=== PATIENT | female | born 1975 | race Caucasian/White ===

== ENCOUNTER 2018-04-17 08:15 | Observation (INO) ==
[2018-04-17] MEDS ORDERED: Sodium Chlor 0.9% Inj 500 ML IV.SIG ONE (08:53)
--- NOTE | 2018-04-17 08:53 | ED ---
[facility] General Chief complaint: Chest Pain Stated complaint: Left Upper Body Pain Time Seen by Provider: 04/17/18 08:32 Source: patient and family Mode of arrival: ambulatory History of Present Illness [facility] narrative: Is a 42-year-old woman presents to the emergency department complaining of chest pain. She felt sick a little bit a couple days ago. She had one episode of vomiting. She was doing fine after that. She woke up this morning with dull left-sided chest discomfort. Along with this she describes some paresthesias in the left face and left arm. No numbness, no weakness, no other associated symptoms. Denies any shortness of breath. She has not had previous similar symptoms in the past. Only medical history is asthma. She does have recent history of a 8 hour car ride. She has been having some leg cramping recently. She otherwise had been feeling generally well and healthy. Related Data Home Medications Medication Instructions Recorded Confirmed No Known Home Medications 04/17/18 04/17/18 Allergies Allergy/AdvReac Type Severity Reaction Status Date / Time clarithromycin Allergy Severe Nausea/Vomi Verified 04/17/18 13:28 ting Review of Systems ROS Unobtainable All other systems reviewed negative except as stated in HPI [facility] Medical History Medical History Asthma (Acute) Social History Social History Substance History: No History of Abuse Second Hand Smoke Exposure: No Smoking Status: Never smoker How Often Do You Have a Drink Containing Alcohol: Monthly or less Recent Travel in [facility] within the Last 8 Weeks: No Recent Out of Country Travel within the Last 8 Weeks: No Immunization History Tetanus Immunization: <5 Years Hx Influenza Vaccine This Season: No Exam Narrative Exam Narrative: GENERAL: Obese 42-year-old woman, no acute distress. SKIN: Focused skin assessment warm/dry. HEAD: Atraumatic. Normocephalic. EYES: Pupils equal and round. No scleral icterus. No injection or drainage. ENT: No nasal bleeding or discharge. Mucous membranes pink and moist. NECK: Trachea midline. No JVD. CARDIOVASCULAR: Regular rate and rhythm. No murmur appreciated. RESPIRATORY: Mild tachypnea. No accessory muscle use. Clear to auscultation. Breath sounds equal bilaterally. GASTROINTESTINAL: Abdomen soft, non-tender, nondistended. Hepatic and splenic margins not palpable. MUSCULOSKELETAL: No obvious deformities. Legs are obese I do not see any reynaldo edema or asymmetry however she does have some calf tenderness on the left. NEUROLOGICAL: Awake and alert. Cranial nerves II through XII are intact. She has some paresthesias in the left face with sensations intact to light touch. Strength full and equal upper and lower extremity's. No pronator drift or lower extremity drift. Normal finger to nose. Still complaining of paresthesias in the left arm. Sensation otherwise intact. PSYCHIATRIC: Appropriate mood and affect; insight and judgment normal. Course Initial Documented Vital Signs Temperature 99.2 F 04/17/18 08:19 Pulse Rate 106 H 04/17/18 08:19 Respiratory Rate 18 04/17/18 08:19 Blood Pressure 135/81 04/17/18 08:19 Pulse Oximetry 97 04/17/18 08:19 Last Documented Vital Signs Temperature 99.2 F 04/17/18 08:19 Pulse Rate 106 H 04/17/18 09:52 Respiratory Rate 18 04/17/18 08:19 Blood Pressure 135/81 04/17/18 08:19 Pulse Oximetry 97 04/17/18 08:19 Medical Decision Making MDM Narrative Medical decision making narrative: Is a 42-year-old woman who presents to the emergency department complaining of left-sided chest pain and left sided paresthesias. She looks well. History is not really suggestive she has no objective neurologic deficits. She does have a history of long car ride, some calf tenderness, she was tachypneic on my exam, all worrisome for PE. Will just check CT pulmonary angiogram. EKG looks well. I do not think these are stroke symptoms. We will reassess. Lab Data Lab results reviewed: Yes I reviewed the patient's lab results. Result diagrams: 04/17/18 09:46 04/17/18 09:46 Lab Results 04/17/18 04/17/18 04/17/18 Range/Units 09:46 09:46 09:46 WBC 6.1 (4.0-11.0) th/mm3 RBC 4.68 (4.00-5.30) mil/mm3 Hgb 11.8 (11.6-15.3) gm/dL Hct 36.7 (35.0-46.0) % MCV 78.3 L (80.0-100.0) fL MCH 25.2 L (27.0-34.0) pg MCHC 32.2 (32.0-36.0) % RDW 16.0 (11.6-17.2) % Plt Count 206 (150-450) th/mm3 MPV 9.2 (7.0-11.0) fL Neut % (Auto) 74.6 H (16.0-70.0) % Lymph % (Auto) 18.8 (9.0-44.0) % Carbon % (Auto) 4.6 (0.0-8.0) % Eos % (Auto) 1.5 (0.0-4.0) % Baso % (Auto) 0.5 (0.0-2.0) % Neut # (Auto) 4.6 (1.8-7.7) th/mm3 Lymph # (Auto) 1.2 (1.0-4.8) th/mm3 Carbon # (Auto) 0.3 (0.0-0.9) th/mm3 Eos # (Auto) 0.1 (0.0-0.4) th/mm3 Baso # (Auto) 0.0 (0.0-0.2) th/mm3 WBC Differential . Differential Comment Auto diff final PT 10.1 (9.8-11.6) sec INR 1.0 Ratio APTT 25.7 (24.3-30.1) sec D-Dimer Quant (PE/DVT) 0.21 (0.00-0.50) mg/L FEU Sodium 142 (136-145) meq/L Potassium 4.2 (3.5-5.1) meq/L Chloride 110 H (98-107) meq/L Carbon Dioxide 26.1 (21.0-32.0) meq/L Anion Gap 6 (5-15) meq/L BUN 8 (7-18) mg/dL Creatinine 1.03 H (0.50-1.00) mg/dL Estimated GFR 58 L (>89) mL/min Random Glucose 90 (74-106) mg/dL Calcium 8.4 L (8.5-10.1) mg/dL Total Bilirubin 0.4 (0.2-1.0) mg/dL AST 14 L (15-37) U/L ALT 24 (10-53) U/L Alkaline Phosphatase 77 (45-117) U/L Troponin I Less than 0.02 L (0.02-0.05) ng/mL Total Protein 7.1 (6.4-8.2) g/dL Albumin 3.2 L (3.4-5.0) g/dL Imaging Data Radiologist's impression: Chest X-Ray 04/17/18 08:54 CONCLUSION: Negative examination. Chest CTA 04/17/18 09:08 CONCLUSION: 1. No evidence for pulmonary embolism. ECG Data EKG Prior to Arrival: Yes Attestation: I personally reviewed and interpreted this ECG as follows: Interpretation: Normal sinus rhythm at a rate of 87, normal axis, normal it ischemia. Discharge Plan Discharge Disposition Patient Disposition: 30 Still Patient Physicians Team ED Provider: Omid Hernandez Primary Care Provider: Rivas Escobar Attending Provider: Edison Braxton Status ED Status: Admitted Observation Patient
--- NOTE | 2018-04-17 09:31 | XR ---
EXAM DATE: 04/17/2018 9:23 AM EDT AGE/SEX: 42 years / Female INDICATIONS: . Left sided chest pain and tingling in face and upper extremities for one day. CLINICAL DATA: This is the patient's initial encounter. Patient reports that signs and symptoms have been present for 1 day and indicates a pain score of 7/10. MEDICAL/SURGICAL HISTORY: None. Cholecystectomy. COMPARISON: No prior exams available for comparison. FINDINGS: PA and lateral views of the chest demonstrate the lungs to be symmetrically aerated without evidence of mass, infiltrate or effusion. The cardiomediastinal contours are unremarkable. Osseous structures are intact. CONCLUSION: Negative examination. Electronically signed by: Alexander Ratliff MD 04/17/2018 9:29 AM EDT
[2018-04-17 10:12] LABS: Baso % (Auto) 0.5 % (0.0-2.0); Eos # (Auto) 0.1 th/mm3 (0.0-0.4); Eos % (Auto) 1.5 % (0.0-4.0); Hematocrit 36.7 % (35.0-46.0); Hemoglobin 11.8 gm/dL (11.6-15.3); Lymph # (Auto) 1.2 th/mm3 (1.0-4.8); Lymph % (Auto) 18.8 % (9.0-44.0); Mean Corpuscular HGB Conc 32.2 % (32.0-36.0); Mean Corpuscular Hemoglobin 25.2 pg (27.0-34.0); Mean Corpuscular Volume 78.3 fL (80.0-100.0); Mean Platelet Volume 9.2 fL (7.0-11.0); Mono # (Auto) 0.3 th/mm3 (0.0-0.9); Mono % (Auto) 4.6 % (0.0-8.0); Neut # (Auto) 4.6 th/mm3 (1.8-7.7); Neut % (Auto) 74.6 % (16.0-70.0); Platelet Count 206 th/mm3 (150-450); Red Blood Count 4.68 mil/mm3 (4.00-5.30); White Blood Count 6.1 th/mm3 (4.0-11.0)
[2018-04-17 10:18] LABS: Activated Partial Thrombo Time 25.7 sec (24.3-30.1); Prothrombin Time 10.1 sec (9.8-11.6)
[2018-04-17 10:21] LABS: D-Dimer 0.21 mg/L FEU (0.00-0.50)
[2018-04-17 10:38] LABS: Albumin 3.2 g/dL (3.4-5.0); Anion Gap 6 meq/L (5-15); Aspartate Aminotransferase 14 U/L (15-37); Blood Urea Nitrogen 8 mg/dL (7-18); Calcium 8.4 mg/dL (8.5-10.1); Carbon Dioxide 26.1 meq/L (21.0-32.0); Chloride 110 meq/L (98-107); Glomerular Filtration Rate 58 mL/min (>89); Glucose,Random 90 mg/dL (74-106); Potassium 4.2 meq/L (3.5-5.1); Sodium 142 meq/L (136-145)
[2018-04-17 10:39] LABS: Alanine Aminotransferase 24 U/L (10-53)
[2018-04-17 10:43] LABS: Alkaline Phosphatase 77 U/L (45-117); Total Protein 7.1 g/dL (6.4-8.2)
--- NOTE | 2018-04-17 12:01 | CT ---
EXAM DATE: 04/17/2018 10:28 AM EDT AGE/SEX: 42 years / Female INDICATIONS: Left sided chest pain. CLINICAL DATA: This is the patient's initial encounter. Patient reports that signs and symptoms have been present for 1 day and indicates a pain score of 4/10. MEDICAL/SURGICAL HISTORY: Asthma. None. RADIATION DOSE: 30.27 CTDI (mGy) ; Patient body habitus [place] [facility] [place]. . TECHNIQUE: Volumetric scanning was performed using a multi-row detector CT scanner during bolus infu silviano of 75 ml Omnipaque 350 (iohexol) nonionic water-soluble contrast as a single exam dose. The uche a was post processed with a variety of visualization algorithms including full volume maximum intensi ty projection and sliding thin slab reformation. Using automated exposure control and adjustment of the mA and/or kV according to patient size, radiation dose was kept as low as reasonably achievable t o obtain optimal diagnostic quality images. DICOM format image data is available electronically for review and comparison. FINDINGS: The lungs are clear. No pleural or pericardial effusions. No adenopathy. No evidence for pulmonary em bolism. The osseous structures are intact. CONCLUSION: 1. No evidence for pulmonary embolism. Electronically signed by: Alexander Ratliff MD 04/17/2018 10:32 AM EDT
[2018-04-17] MEDS ORDERED: Acetaminophen 325 MG Tablet PO PRN (15:19)
--- NOTE | 2018-04-17 15:28 | P.HP ---
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 Patient presents to the emergency department complaining of chest pain. She woke up this morning with moderate constant dull left-sided chest discomfort, which is still present. There was also one episode of shooting pain up her neck no other radiation of the pain. There was no associated N/V, SOB or diaphoresis. Along with this patient woke up with some paresthesias located on the left face and left arm. Patient denies weakness, shortness of breath, N/V/D/C. She does report a recent history of a 8 hour car ride. She has been having some leg cramping recently. She otherwise had been feeling generally well and healthy. 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 EtOH use once a week, "if that" Denies tobacco use now in the past Denies illicit drug use FMH: Sister has HTN and has had a CVA when she was 45 - Diagnosis (1) Chest pain Review of Systems All other systems reviewed negative except as stated in HPI [facility] - History History Provided By: Patient - Medical History Medical History: Medical History (Last Reviewed 04/17/18 @ 08:56 by Omid Hernandez MD) Asthma - Tobacco History Second Hand Smoke Exposure: No Tobacco Use In Past 30 Days: No Smoking Status: Never smoker - Alcohol History How Often Do You Have a Drink Containing Alcohol: Monthly or less - Substance Use History Substance History: No History of Abuse - Travel History Recent Travel in the [place] Within the Last 8 Weeks: No Recent Travel Out of the Country Within the Last 8 Weeks: No - Immunization History Tetanus Immunization: <5 Years Hx Influenza Vaccine This Season: No Medications and Allergies Allergies Allergy/AdvReac Type Severity Reaction Status Date / Time clarithromycin Allergy Severe Nausea/Vomi Verified 08/01/18 13:28 ting Active Medications: Active Medications Sodium Chloride (Ns Flush) 2 ml IV.FLUSH UNSCH PRN PRN Reason: FLUSH AFTER USING IV ACCESS Exam Vital signs: Vital Signs 04/17/18 08:19 04/17/18 09:52 Temperature 99.2 F Pulse Rate 106 H 106 H Respiratory Rate 18 Blood Pressure 135/81 Pulse Oximetry 97 Intake & Output 04/16/18 04/17/18 04/17/18 18:59 06:59 18:59 Weight 123.377 kg Narrative: GENERAL: This is a well-nourished, well-developed patient, in no apparent distress. CARDIOVASCULAR: Regular rate and rhythm RESPIRATORY: Clear to auscultation. Breath sounds equal bilaterally. GASTROINTESTINAL: Abdomen soft, non-tender, nondistended. Normal active bowel sounds MUSCULOSKELETAL: Extremities without clubbing, cyanosis, or edema. NEURO: Alert & Oriented x4 to person, place, time, situation. Moves all ext x4 Results - Labs CBC & Chem 7: 04/17/18 09:46 04/17/18 09:46 Labs: Laboratory Results - last 24 hr 04/17/18 04/17/18 04/17/18 09:46 09:46 09:46 WBC 6.1 RBC 4.68 Hgb 11.8 Hct 36.7 MCV 78.3 L MCH 25.2 L MCHC 32.2 RDW 16.0 Plt Count 206 MPV 9.2 Neut % (Auto) 74.6 H Lymph % (Auto) 18.8 [place] % (Auto) 4.6 Eos % (Auto) 1.5 Baso % (Auto) 0.5 Neut # (Auto) 4.6 Lymph # (Auto) 1.2 [place] # (Auto) 0.3 Eos # (Auto) 0.1 Baso # (Auto) 0.0 WBC Differential . Differential Comment Auto diff final PT 10.1 INR 1.0 APTT 25.7 D-Dimer Quant (PE/DVT) 0.21 Sodium 142 Potassium 4.2 Chloride 110 H Carbon Dioxide 26.1 Anion Gap 6 BUN 8 Creatinine 1.03 H Estimated GFR 58 L Random Glucose 90 Calcium 8.4 L Total Bilirubin 0.4 AST 14 L ALT 24 Alkaline Phosphatase 77 Troponin I Less than 0.02 L Total Protein 7.1 Albumin 3.2 L - Imaging Impressions Chest X-Ray 04/17/18 08:54 CONCLUSION: Negative examination. Chest CTA 04/17/18 09:08 CONCLUSION: 1. No evidence for pulmonary embolism. Caprini VTE Risk Assessment Caprini VTE Risk Assessment: No/Low Risk (score <= 1) Caprini Risk Assessment Model: Point Value = 1 Point Value = 2 Point Value = 3 Point Value = 5 Age 41-60 Minor surgery BMI > 25 kg/m2 Swollen legs Varicose veins or History of unexplained or recurrent spontaneous Oral contraceptives or hormone replacement Sepsis (< 1 month) Serious lung disease, including pneumonia (< 1 month) Abnormal pulmonary function Acute myocardial infarction Congestive heart failure (< 1 month) History of inflammatory bowel disease Medical patient at bed rest Age 61-74 Arthroscopic surgery Major open surgery (> 45 min) Laparoscopic surgery (> 45 min) Malignancy Confined to bed (> 72 hours) Immobilizing plaster cast Central venous access Age >= 75 History of VTE Family history of VTE Factor V Leiden Prothrombin [id number] Lupus anticoagulant Anticardiolipin antibodies Elevated serum homocysteine Heparin-induced thrombocytopenia Other congenital or acquired thrombophilia Stroke (< 1 month) Elective arthroplasty Hip, pelvis, or leg fracture Acute spinal cord injury (< 1 month) Prophylaxis Regimen: Total Risk Factor Score Risk Level Prophylaxis Regimen 0-1 Low Early ambulation 2 Moderate Order ONE of the following: *Sequential Compression Device (SCD) *Heparin 5000 units SQ BID 3-4 Higher Order ONE of the following medications: *Heparin 5000 units SQ TID *Enoxaparin/Lovenox 40 mg SQ daily (WT < 150 kg, CrCl > 30 mL/min) *Enoxaparin/Lovenox 30 mg SQ daily (WT < 150 kg, CrCl > 10-29 mL/min) *Enoxaparin/Lovenox 30 mg SQ BID (WT < 150 kg, CrCl > 30 mL/min) AND/OR *Sequential Compression Device (SCD) 5 or more Highest Order ONE of the following medications: *Heparin 5000 units SQ TID (Preferred with Epidurals) *Enoxaparin/Lovenox 40 mg SQ daily (WT < 150 kg, CrCl > 30 mL/min) *Enoxaparin/Lovenox 30 mg SQ daily (WT < 150 kg, CrCl > 10-29 mL/min) *Enoxaparin/Lovenox 30 mg SQ BID (WT < 150 kg, CrCl > 30 mL/min) AND *Sequential Compression Device (SCD) Assessment and Plan - Assessment (1) Chest pain Code(s): R07.9 - Chest pain, unspecified Status: Acute Plan: Chest pain Patient woke up this morning with dull left-sided chest discomfort. Initial EKG reviewed and reveals sinus rhythm with no acute ST changes Initial troponin less than 0.02 We will trend serial troponin and obtain serial EKGs Continuous cardiac telemetry 2D echocardiogram CTA negative for PE aspirin daily Paresthesia Atypical facial pain previously treated with steroids paresthesias in the left face and left arm Patient has been previously treated with steroids in outpatient setting outpatient records plan was for MRI if paresthesias return MRI/MRA of the head ordered Ultrasound bilateral carotid arteries 2D echocardiogram also ordered Continuous cardiac telemetry cervical spine x ray Consult neurology Asthma Patient does not appear to be an acute exacerbation Duo nebs as needed Morbid obesity Recommend patient follow-up with PCP for weight management Hemoglobin A1c Sleep apnea May use home CPAP device DVT prophylaxis with SCDs <Edison Braxton - Last Filed: 05/07/18 09:20> History of Present Illness Primary Care Physician: Rivas Escobar MD, PhD - Diagnosis (1) Chest pain [facility] - Medical History Medical History: Medical History (Last Reviewed 04/17/18 @ 08:56 by Omid Hernandez MD) Asthma Results - Labs CBC & Chem 7: 04/18/18 06:35 04/18/18 06:35 Caprini VTE Risk Assessment Caprini Risk Assessment Model: Point Value = 1 Point Value = 2 Point Value = 3 Point Value = 5 Age 41-60 Minor surgery BMI > 25 kg/m2 Swollen legs Varicose veins or History of unexplained or recurrent spontaneous Oral contraceptives or hormone replacement Sepsis (< 1 month) Serious lung disease, including pneumonia (< 1 month) Abnormal pulmonary function Acute myocardial infarction Congestive heart failure (< 1 month) History of inflammatory bowel disease Medical patient at bed rest Age 61-74 Arthroscopic surgery Major open surgery (> 45 min) Laparoscopic surgery (> 45 min) Malignancy Confined to bed (> 72 hours) Immobilizing plaster cast Central venous access Age >= 75 History of VTE Family history of VTE Factor V Leiden Prothrombin [id number] Lupus anticoagulant Anticardiolipin antibodies Elevated serum homocysteine Heparin-induced thrombocytopenia Other congenital or acquired thrombophilia Stroke (< 1 month) Elective arthroplasty Hip, pelvis, or leg fracture Acute spinal cord injury (< 1 month) Prophylaxis Regimen: Total Risk Factor Score Risk Level Prophylaxis Regimen 0-1 Low Early ambulation 2 Moderate Order ONE of the following: *Sequential Compression Device (SCD) *Heparin 5000 units SQ BID 3-4 Higher Order ONE of the following medications: *Heparin 5000 units SQ TID *Enoxaparin/Lovenox 40 mg SQ daily (WT < 150 kg, CrCl > 30 mL/min) *Enoxaparin/Lovenox 30 mg SQ daily (WT < 150 kg, CrCl > 10-29 mL/min) *Enoxaparin/Lovenox 30 mg SQ BID (WT < 150 kg, CrCl > 30 mL/min) AND/OR *Sequential Compression Device (SCD) 5 or more Highest Order ONE of the following medications: *Heparin 5000 units SQ TID (Preferred with Epidurals) *Enoxaparin/Lovenox 40 mg SQ daily (WT < 150 kg, CrCl > 30 mL/min) *Enoxaparin/Lovenox 30 mg SQ daily (WT < 150 kg, CrCl > 10-29 mL/min) *Enoxaparin/Lovenox 30 mg SQ BID (WT < 150 kg, CrCl > 30 mL/min) AND *Sequential Compression Device (SCD) Assessment and Plan - Assessment (1) Chest pain Code(s): R07.9 - Chest pain, unspecified Status: Acute - Attending Attestation Patient examined. Assessment and plan formulated with Kelly GALLAGHER I agree with the above.
--- NOTE | 2018-04-17 16:35 | XR ---
EXAM DATE: 04/17/2018 4:33 PM EDT AGE/SEX: 42 years / Female INDICATIONS: Left sided neck and arm numbness. CLINICAL DATA: This is the patient's initial encounter. Patient reports that signs and symptoms have been present for 2 days and indicates a pain score of 1/10. MEDICAL/SURGICAL HISTORY: None. None. COMPARISON: [facility], SPINE CERVICAL COMPLETE ([id number]), 04/05/2013. . FINDINGS: The vertebral bodies are in normal alignment without evidence of compression deformity. Bone density is normal for age. Soft tissues are grossly intact. CONCLUSION: Negative examination. Electronically signed by: Alexander Ratliff MD 04/17/2018 4:34 PM EDT
--- NOTE | 2018-04-17 16:59 | ECG ---
Date Performed: 04/17/2018 Time Performed: 08:39:06 PTAGE: 42 years EKG: Sinus rhythm WITH SINUS ARRHYTHMIA NORMAL ECG Since the PREVIOUS TRACING , no significant change noted PREVIOUS TRACIN11/26/2005 23.13 DOCTOR: Marguerite Acevedo Interpretating Date/Time 04/17/2018 16:59:02
--- NOTE | 2018-04-17 17:25 | MB ---
cc: Melvi Dickson MD, Dalia MD DATE: 04/17/2018 REASON FOR CONSULTATION: Paresthesias left face and arm. HISTORY OF PRESENT ILLNESS: This is a 42-year-old woman with a history of anxiety, PCOS, asthma, morbid obesity, reflux, sleep apnea on CPAP with, some atypical facial pain on the right in the past in 09/2017. He comes in because of some retrosternal chest pressure and then neurology is consulted for tingling, paresthesias in the left face and arm. She denies any weakness, denies a headache, denies shortness of breath, nausea or vomiting. She does complain of some pain in the back of her left calf. There is some report of a recent 8-hour car ride. PAST MEDICAL HISTORY: As stated. PAST SURGICAL HISTORY: Laparoscopic cholecystectomy, exploratory laparotomy and knee arthroplasty. 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 Rarely drinks. Does not smoke. No illicit drugs. FAMILY HISTORY: Sister with blood pressure and stroke when she was 45. PHYSICAL EXAMINATION: GENERAL: This is a pleasant woman lying in bed in no distress. VITAL SIGNS: Temperature is 99.2, heart rate 88, respiratory rate 18, blood pressure 140/76, satting at 99% on room air. NECK: Supple. No carotid bruits. HEART: Regular. NEUROLOGIC: She is awake and alert and oriented and fluent. Her pupils are reactive. Her visual solomon are full. Face is symmetrical. Tongue is midline. She has decreased light touch over the V2, V3 territory as well as left arm. Left leg is normal. There is no drift or leg lag. Strength 5/5 throughout. DTRs are trace to 1+. Toes are downgoing. Cerebellar testing is normal. Sensory as stated, decreased in the left face and left arm. She does have, on extremity exam, tenderness over the left calf muscle. No cords, but questionable Homans sign. There is no swelling or warmth to the leg either. LABORATORY DATA: Chemistries are reviewed. Creatinine 1.03, GFR 58, calcium 8.4, AST 14, ALT 24, albumin 3.2. Beta hCG less than 1. Troponin less than 0.02. MCV 78.3. Coag panel is normal. IMAGING STUDIES: Chest CTA did not show any PE. Chest x-ray negative. She did have a cervical spine x-ray that was normal as well. IMPRESSION: Paresthesias of the left face. Left leg tenderness, rule out deep venous thrombosis. PLAN: Recommend MRI brain [place], MRA, carotid ultrasound and echo. I will also put an ultrasound of the left lower extremity to rule out DVT. I will continue her on a baby aspirin daily for the interim. Depending on what findings will present on the workup, further recommendations will be made accordingly. Serial troponins and EKGs will be done by the primary team for chest discomfort. Her EKG was sinus rhythm initially. I think an A1c has been ordered. I would use her CPAP or a CPAP device while she is here for her sleep apnea. Depending on findings, further recommendations will be made accordingly from a neurologic perspective. MD MICKIE Bob/ , 05:01 PM , 05:10 PM
[2018-04-17 18:44] LABS: Creatine Kinase 114 U/L (26-192)
--- NOTE | 2018-04-17 19:55 | MR ---
EXAM DATE: 04/17/2018 7:14 PM EDT AGE/SEX: 42 years / Female INDICATIONS: . Left face and arm numbness and tingling. CLINICAL DATA: This is the patient's subsequent encounter. Patient reports that signs and symptoms h ave been present for 1 day and indicates a pain score of 0/10. MEDICAL/SURGICAL HISTORY: None. Cholecystectomy. COMPARISON: No prior exams available for comparison. TECHNIQUE: Multiplanar, multisequence examination of the brain was performed without contrast. FINDINGS: No intracranial mass, shift. No hydrocephalus. No abnormal extra-axial fluid collections. There is no recent infarct on the diffusion-weighted images. No sellar mass. There is some mild mucosal thickeni ng in the ethmoid air cells. Small retention cyst left maxillary sinus. CONCLUSION: 1. No acute findings. Specifically no infarct, mass effect or shift. Electronically signed by: Chevy Linn MD 04/17/2018 7:54 PM EDT
--- NOTE | 2018-04-17 19:58 | MR ---
EXAM DATE: 04/17/2018 7:44 PM EDT AGE/SEX: 42 years / Female INDICATIONS: . Numbness and tingling in left face and arm. CLINICAL DATA: This is the patient's subsequent encounter. Patient reports that signs and symptoms h ave been present for 1 day and indicates a pain score of 0/10. MEDICAL/SURGICAL HISTORY: None. Cholecystectomy. COMPARISON: No prior exams available for comparison. TECHNIQUE: 3D [id number] MRA was performed. Source images, multiplanar STS MIP, and 3D volum e MIP reconstructions were reviewed. FINDINGS: There is excellent visualization of the major intracranial arteries out to the second-order branch ve ssels. There is no evidence for aneurysm, vessel truncation or stenosis, and no evidence for vascula r malformation. CONCLUSION: 1. Examination within normal limits. Electronically signed by: Chevy Linn MD 04/17/2018 7:57 PM EDT
[2018-04-17] MEDS: Sod Chloride 0.9% Inj 1,000 ML IV.CONT SCH (20:47)
[2018-04-17] MEDS: Senna/Docusate Sodium 8.6/50 MG Tablet PO SCH (20:52)
--- NOTE | 2018-04-17 21:17 | US ---
EXAM DATE: 04/17/2018 8:58 PM EDT AGE/SEX: 42 years / Female INDICATIONS: Left leg pain. CLINICAL DATA: This is the patient's initial encounter. Patient reports that signs and symptoms have been present for 1 day and indicates a pain score of 4/10. MEDICAL/SURGICAL HISTORY: Asthma. Gastroesophageal reflux disease. CPOS. Morbid obesity. Sle ep apnea. Cholecystectomy. Exploratory Laparotomy. Knee Arthroplasty. COMPARISON: No prior exams available for comparison. TECHNIQUE: Venous ultrasound of both lower extremities was performed from the inguinal ligament to t he proximal calf. Real-time, color Doppler and spectral tracing, compression and augmentation techni ques were used. FINDINGS: Normal compression of the deep venous system from the inguinal region to the proximal calf . No echogenic clot is seen. Normal response of the venous system to augmentation and respiration. CONCLUSION: 1. Negative for deep venous thrombosis. Popliteal cyst measures 2.9 x 1.4 x 1.2 cm. Electronically signed by: Chevy Linn MD 04/17/2018 9:16 PM EDT
--- NOTE | 2018-04-17 22:38 | US ---
EXAM DATE: 04/17/2018 8:54 PM EDT AGE/SEX: 42 years / Female INDICATIONS: Left sided numbness. CLINICAL DATA: This is the patient's initial encounter. Patient reports that signs and symptoms have been present for 1 day and indicates a pain score of 0/10. MEDICAL/SURGICAL HISTORY: Asthma. Gastroesophageal reflux disease. CPOS. Morbid obesity. Sle ep apnea. Cholecystectomy. Exploratory Laparotomy. Knee Arthroplasty. COMPARISON: No prior exams available for comparison. VELOCITY PARAMETERS: ICA/CCA Ratio: Right 1.64 , Left 1.28 ICA: Right 160 cm/sec, Left 132 cm/sec CCA: Right 98 cm/sec, Left 103 cm/sec ECA: Right 159 cm/sec, Left 152 cm/sec Vertebral: Right 53 cm/sec antegrade, Left 61 cm/sec antegrade FINDINGS: Right Carotid: No significant plaque is visualized.The waveforms are within normal limits. Left Carotid: No significant plaque is visualized. The waveforms are within normal limits. Other: None. CONCLUSION: 1. Right Internal Carotid Artery: No hemodynamically significant stenosis. No significant plaque erich ntified. 2. Left Internal Carotid Artery: No hemodynamically significant stenosis. No significant plaque iden tified. Electronically signed by: Chevy Linn MD 04/17/2018 10:37 PM EDT
[2018-04-18 04:35] VITALS: O2SAT 98
[2018-04-18 07:50] LABS: Baso % (Auto) 0.7 % (0.0-2.0); Eos # (Auto) 0.2 th/mm3 (0.0-0.4); Eos % (Auto) 2.5 % (0.0-4.0); Hematocrit 35.9 % (35.0-46.0); Hemoglobin 11.5 gm/dL (11.6-15.3); Lymph # (Auto) 1.7 th/mm3 (1.0-4.8); Mean Corpuscular HGB Conc 32.1 % (32.0-36.0); Mean Corpuscular Hemoglobin 25.3 pg (27.0-34.0); Mean Corpuscular Volume 78.8 fL (80.0-100.0); Mean Platelet Volume 9.1 fL (7.0-11.0); Mono # (Auto) 0.3 th/mm3 (0.0-0.9); Mono % (Auto) 4.4 % (0.0-8.0); Neut # (Auto) 4.4 th/mm3 (1.8-7.7); Neut % (Auto) 66.4 % (16.0-70.0); Platelet Count 185 th/mm3 (150-450); Red Blood Count 4.55 mil/mm3 (4.00-5.30); Red Cell Distribution Width 16.2 % (11.6-17.2); White Blood Count 6.6 th/mm3 (4.0-11.0)
[2018-04-18 08:15] LABS: Calcium 7.8 mg/dL (8.5-10.1); Carbon Dioxide 26.8 meq/L (21.0-32.0); Potassium 3.8 meq/L (3.5-5.1)
[2018-04-18 08:17] LABS: Chol/HDL Ratio 2.56 Ratio; HDL Cholesterol 47.1 mg/dL (40.0-60.0)
[2018-04-18] MEDS: Sod Chloride 0.9% Inj 1,000 ML IV.CONT SCH (08:24)
[2018-04-18] MEDS: Senna/Docusate Sodium 8.6/50 MG Tablet PO SCH (08:25)
[2018-04-18 08:41] VITALS: BP 121/67; RESP 14; TEMP 98.5
--- NOTE | 2018-04-18 09:52 | P.PNIM ---
Subjective Interval history: Follow up: Chest pain and Paresthesia left face and left chest discomfort is, "about the same." no longer having left arm paresthesia facial paresthesia about the same no new concerns/complaints Physical Exam Vital signs: Vital Signs 04/17/18 09:52 04/17/18 16:20 04/17/18 17:24 Temperature 98.1 F Pulse Rate 106 H 88 70 Respiratory Rate 18 16 Blood Pressure 140/76 125/74 Pulse Oximetry 99 99 04/17/18 20:00 04/18/18 00:00 04/18/18 04:00 Temperature 98.6 F 98.2 F 98.4 F Pulse Rate 85 68 73 Respiratory Rate 17 16 15 Blood Pressure 123/73 101/60 131/74 Pulse Oximetry 98 99 98 04/18/18 08:00 Temperature 98.5 F Pulse Rate 80 Respiratory Rate 14 Blood Pressure 121/67 Pulse Oximetry 98 Intake & Output 04/17/18 04/18/18 04/18/18 18:59 06:59 18:59 Intake Total 500 / 500 1000 / 1000 Balance 500 / 500 1000 / 1000 Weight 123.377 kg 123.377 kg Intake: IV 500 / 500 1000 / 1000 NS Inj 1,000 ML @ 70 mls/hr IV. 1000 / 1000 CONT .[id number] [facility] Rx#:[id number] Other: Weight On Admission 123.377 kg Narrative: GENERAL: This is a morbidly obese 42 year old female, well-developed patient, in no apparent distress. CARDIOVASCULAR: Regular rate and rhythm RESPIRATORY: Clear to auscultation. Breath sounds equal bilaterally. GASTROINTESTINAL: Abdomen soft, non-tender, nondistended. Normal active bowel sounds MUSCULOSKELETAL: Extremities without clubbing, cyanosis, or edema. NEURO: Alert & Oriented x4 to person, place, time, situation. Moves all ext x4 Results - Labs CBC & Chem 7: 04/18/18 06:35 04/18/18 06:35 Laboratory Results - last 24 hr 04/17/18 04/17/18 04/17/18 09:46 09:46 09:46 WBC 6.1 RBC 4.68 Hgb 11.8 Hct 36.7 MCV 78.3 L MCH 25.2 L MCHC 32.2 RDW 16.0 Plt Count 206 MPV 9.2 Neut % (Auto) 74.6 H Lymph % (Auto) 18.8 [place] % (Auto) 4.6 Eos % (Auto) 1.5 Baso % (Auto) 0.5 Neut # (Auto) 4.6 Lymph # (Auto) 1.2 [place] # (Auto) 0.3 Eos # (Auto) 0.1 Baso # (Auto) 0.0 WBC Differential . Differential Comment Auto diff final PT 10.1 INR 1.0 APTT 25.7 D-Dimer Quant (PE/DVT) 0.21 Sodium 142 Potassium 4.2 Chloride 110 H Carbon Dioxide 26.1 Anion Gap 6 BUN 8 Creatinine 1.03 H Estimated GFR 58 L Random Glucose 90 Calcium 8.4 L Total Bilirubin 0.4 AST 14 L ALT 24 Alkaline Phosphatase 77 Total Creatine Kinase CK-MB (CK-2) Troponin I Less than 0.02 L Total Protein 7.1 Albumin 3.2 L Triglycerides Cholesterol LDL Cholesterol, Calc HDL Cholesterol Cholesterol/HDL Ratio Beta HCG, Qual 04/17/18 04/17/18 04/17/18 09:46 17:15 17:15 WBC RBC Hgb Hct MCV MCH MCHC RDW Plt Count MPV Neut % (Auto) Lymph % (Auto) [place] % (Auto) Eos % (Auto) Baso % (Auto) Neut # (Auto) Lymph # (Auto) [place] # (Auto) Eos # (Auto) Baso # (Auto) WBC Differential Differential Comment PT INR APTT D-Dimer Quant (PE/DVT) Sodium Potassium Chloride Carbon Dioxide Anion Gap BUN Creatinine Estimated GFR Random Glucose Calcium Total Bilirubin AST ALT Alkaline Phosphatase Total Creatine Kinase 114 CK-MB (CK-2) Less than 0.5 L Troponin I Less than 0.02 L Cancelled Total Protein Albumin Triglycerides Cholesterol LDL Cholesterol, Calc HDL Cholesterol Cholesterol/HDL Ratio Beta HCG, Qual Less than 1.0 04/17/18 04/18/18 04/18/18 20:46 06:35 06:35 WBC 6.6 RBC 4.55 Hgb 11.5 L Hct 35.9 MCV 78.8 L MCH 25.3 L MCHC 32.1 RDW 16.2 Plt Count 185 MPV 9.1 Neut % (Auto) 66.4 Lymph % (Auto) 26.0 [place] % (Auto) 4.4 Eos % (Auto) 2.5 Baso % (Auto) 0.7 Neut # (Auto) 4.4 Lymph # (Auto) 1.7 [place] # (Auto) 0.3 Eos # (Auto) 0.2 Baso # (Auto) 0.0 WBC Differential . Differential Comment Auto diff final PT INR APTT D-Dimer Quant (PE/DVT) Sodium 144 Potassium 3.8 Chloride 110 H Carbon Dioxide 26.8 Anion Gap 7 BUN 7 Creatinine 0.86 Estimated GFR 72 L Random Glucose 81 Calcium 7.8 L Total Bilirubin AST ALT Alkaline Phosphatase Total Creatine Kinase CK-MB (CK-2) Troponin I Less than 0.02 L Total Protein Albumin Triglycerides 71 Cholesterol 121 LDL Cholesterol, Calc 60 HDL Cholesterol 47.1 Cholesterol/HDL Ratio 2.56 Beta HCG, Qual - Imaging Impressions Carotid Doppler Study 04/17/18 00:00 CONCLUSION: 1. Right Internal Carotid Artery: No hemodynamically significant stenosis. No significant plaque identified. 2. Left Internal Carotid Artery: No hemodynamically significant stenosis. No significant plaque identified. Cervical Spine X-Ray 04/17/18 00:00 CONCLUSION: Negative examination. Head MRI 04/17/18 00:00 CONCLUSION: 1. No acute findings. Specifically no infarct, mass effect or shift. Head MRA 04/17/18 00:00 CONCLUSION: 1. Examination within normal limits. Venous Doppler Study 04/17/18 00:00 CONCLUSION: 1. Negative for deep venous thrombosis. Popliteal cyst measures 2.9 x 1.4 x 1.2 cm. Chest CTA 04/17/18 09:08 CONCLUSION: 1. No evidence for pulmonary embolism. Assessment and Plan - Assessment (1) Chest pain Code(s): R07.9 - Chest pain, unspecified Status: Acute Plan: Chest pain Patient woke up 04/17/18 with dull left-sided chest discomfort. Initial EKG reviewed and reveals sinus rhythm with no acute ST changes troponin less than 0.02 x 3 Continuous cardiac telemetry 2D echocardiogram pending (will have patient complete as an outpatient) CTA negative for PE aspirin daily Paresthesia Atypical facial pain previously treated with steroids paresthesias in the left face and left arm Patient has been previously treated with steroids in outpatient setting outpatient records plan was for MRI if paresthesias return 2D echocardiogram pending (will have patient complete as an outpatient) Continuous cardiac telemetry Consult neurology Carotid Doppler Study 1. Right Internal Carotid Artery: No hemodynamically significant stenosis. No significant plaque identified. 2. Left Internal Carotid Artery: No hemodynamically significant stenosis. No significant plaque identified. Cervical Spine X-Ray CONCLUSION: Negative examination. Head MRI CONCLUSION: 1. No acute findings. Specifically no infarct, mass effect or shift. Head MRA CONCLUSION: 1. Examination within normal limits. Venous Doppler Study CONCLUSION: 1. Negative for deep venous thrombosis. Popliteal cyst measures 2.9 x 1.[address] Braxton discussed the case with Dr. Dickson. Neurology cleared for DC, recommended a daily aspirin 81 mg, follow up with PCP and no need to follow up with neurology Asthma Patient does not appear to be an acute exacerbation Duo nebs as needed Morbid obesity Recommend patient follow-up with PCP for weight management Hemoglobin A1c pending Sleep apnea May use home CPAP device DVT prophylaxis with SCDs DC patient home in stable condition, on a weight management diet, no activity restrictions add aspirin 81 mg daily patient to follow up with PCP in 1 week patient also to follow up with outpatient [facility] cardiology for cardiac echocardiogram - Attending Attestation Patient examined. Assessment and plan formulated with Kelly Muñiz PA-C. I agree with the above.
[2018-04-18 11:13] VITALS: PULSE 78
--- NOTE | 2018-04-18 13:42 | ECG ---
Date Performed: 04/17/2018 Time Performed: 17:21:21 PTAGE: 42 years EKG: Sinus rhythm NORMAL ECG Since the PREVIOUS TRACING , no significant change noted PREVIOUS TRACIN04/17/2018 08.39 DOCTOR: Mendez Jacobo Interpretating Date/Time 04/18/2018 13:41:41
[2018-04-18 17:03] LABS: Hemoglobin A1c 5.2 % (4.3-6.0)
== END 2018-04-18 13:08 | disposition home or self-care (01) ==
LOC: NEPE 08:15 → NEDA 08:15 → NEPHCDU 08:15 → NEDA 16:44 → NEPHCDU 17:15
PROVIDERS: ADMIT Hospitalist; ATTEND Hospitalist
DX: Z68.43 Body mass index [BMI] 50.0-59.9, adult; E28.2 Polycystic ovarian syndrome; G50.1 Atypical facial pain; G47.30 Sleep apnea, unspecified; J45.909 Unspecified asthma, uncomplicated; Z88.1 Allergy status to other antibiotic agents; Z82.49 Family history of ischemic heart disease and other diseases of the circulatory system; R07.9 Chest pain, unspecified; Z82.3 Family history of stroke; Z79.82 Long term (current) use of aspirin; K21.9 Gastro-esophageal reflux disease without esophagitis; E66.01 Morbid (severe) obesity due to excess calories; M71.22 Synovial cyst of popliteal space [Baker], left knee